=== PATIENT | female | born 1970 | race Caucasian/White ===

== ENCOUNTER 2018-09-21 10:08 | Emergency (ER) | payer MEDICAID ==
[~2018-09-21] VITALS: Ht 165.1 cm; Wt 81.2 kg
[2018-09-21 10:12] VITALS: Ht 165.1 cm; Wt 81.2 kg
[2018-09-21 11:29] VITALS: BP 113/71
== END 2018-09-21 11:29 | disposition home or self-care (01) ==
LOC: ED 10:08
DX: N39.0 Urinary tract infection, site not specified (principal); M79.10 Myalgia, unspecified site

== ENCOUNTER 2019-01-11 19:46 | Emergency (ER) | payer MEDICAID ==
[~2019-01-11] VITALS: Ht 165.1 cm; Wt 81.0 kg
[2019-01-11 19:58] VITALS: Ht 165.1 cm; Wt 81.0 kg
[2019-01-11 20:52] LABS: BASOPHIL % 0.4 % (0-2); PLATELET COUNT 328 x10^3mcL (130-400)
[2019-01-11 20:52] LABS: UA SPECIFIC GRAVITY 1.015 (1.005-1.035); microscopic required? YES; urine erythrocyte TRACE (NEGATIVE)
[2019-01-11 20:55] LABS: RED CELL DISTRIBUTION WIDTH 17.8 % (11.5-14.5)
[2019-01-11 20:58] LABS: CALCIUM 8.6 mg/dL (8.5-10.1); CARBON DIOXIDE 29.3 mmol/L (21-32); CHLORIDE SERUM 100 mmol/L (98-107); CREATININE SERUM 0.6 mg/dL (0.6-1.0); GFR1 > 60 mL/min; GLUCOSE SERUM 99 mg/dL (74-106); POTASSIUM SERUM 3.9 mmol/L (3.5-5.1); SODIUM SERUM 138 mmol/L (136-145)
[2019-01-11 21:12] LABS: ALBUMIN 3.4 g/dL (3.4-5.0); ALKALINE PHOSPHATASE 96 U/L (46-116); ALT/SGPT 37 U/L (14-59); AST/SGOT 15 U/L (15-37); BILIRUBIN TOTAL 0.5 mg/dL (0.20-1.00); FREE T4 1.09 ng/dL (0.76-1.46); TOTAL PROTEIN, SERUM 7.5 g/dL (6.4-8.2)
[2019-01-11 23:46] VITALS: BP 130/77
== END 2019-01-11 23:46 | disposition home or self-care (01) ==
LOC: ED 19:46
PROVIDERS: Emergency Medicine
DX: R53.1 Weakness (principal); R42 Dizziness and giddiness; R11.0 Nausea; R51 Headache; R39.15 Urgency of urination
CPT/HCPCS: 36415; 82962; 84439

== ENCOUNTER 2019-03-22 17:46 | Emergency (ER) | payer MEDICAID ==
[~2019-03-22] VITALS: Ht 165.1 cm; Wt 81.2 kg
[2019-03-22 18:04] VITALS: Ht 165.1 cm; Wt 81.2 kg
[2019-03-22 19:11] VITALS: BP 101/61
== END 2019-03-22 20:20 | disposition home or self-care (01) ==
LOC: ED 17:46
DX: G44.209 Tension-type headache, unspecified, not intractable (principal); Z86.2 Personal history of diseases of the blood and blood-forming organs and certain disorders involving the immune mechanism; Z90.49 Acquired absence of other specified parts of digestive tract
CPT/HCPCS: J0780; J1885

== ENCOUNTER 2019-06-28 10:15 | Emergency (ER) | payer MEDICAID ==
[~2019-06-28] VITALS: Ht 162.6 cm; Wt 84.4 kg
[2019-06-28 10:25] VITALS: BP 117/62
== END 2019-06-28 11:58 | disposition home or self-care (01) ==
LOC: ED 10:15
DX: L25.9 Unspecified contact dermatitis, unspecified cause (principal); R10.9 Unspecified abdominal pain; Z98.890 Other specified postprocedural states; Z90.49 Acquired absence of other specified parts of digestive tract; Z86.2 Personal history of diseases of the blood and blood-forming organs and certain disorders involving the immune mechanism

== ENCOUNTER 2019-10-14 10:44 | Emergency (ER) | payer MEDICAID ==
[~2019-10-14] VITALS: Ht 160 cm; Wt 86.6 kg
[2019-10-14 11:01] VITALS: BP 123/56; Ht 160 cm; Wt 86.6 kg
[2019-10-14 11:38] LABS: BASOPHIL % 0.6 % (0-2); PLATELET COUNT 251 x10^3mcL (130-400)
[2019-10-14 11:41] LABS: RED CELL DISTRIBUTION WIDTH 15.9 % (11.5-14.5)
[2019-10-14 12:04] LABS: CALCIUM 7.8 mg/dL (8.5-10.1); CARBON DIOXIDE 27.9 mmol/L (21-32); CHLORIDE SERUM 107 mmol/L (98-107); CREATININE SERUM 0.5 mg/dL (0.6-1.0); GFR1 > 60 mL/min; GLUCOSE SERUM 101 mg/dL (74-106); POTASSIUM SERUM 4.3 mmol/L (3.5-5.1); SODIUM SERUM 142 mmol/L (136-145)
[2019-10-14 12:09] LABS: ALKALINE PHOSPHATASE 93 U/L (46-116); ALT/SGPT 38 U/L (14-59); AST/SGOT 19 U/L (15-37); BILIRUBIN TOTAL 0.7 mg/dL (0.20-1.00); TOTAL PROTEIN, SERUM 6.8 g/dL (6.4-8.2)
[2019-10-14 12:13] LABS: ALBUMIN 3.1 g/dL (3.4-5.0)
== END 2019-10-14 13:00 | disposition home or self-care (01) ==
LOC: ED 10:44
PROVIDERS: Emergency Medicine
DX: M79.10 Myalgia, unspecified site (principal); L50.9 Urticaria, unspecified; D64.9 Anemia, unspecified; Z90.49 Acquired absence of other specified parts of digestive tract; Z98.890 Other specified postprocedural states
CPT/HCPCS: J1885

== ENCOUNTER 2020-07-28 10:16 | Emergency (ER) | payer MEDICAID ==
[~2020-07-28] VITALS: Ht 160 cm; Wt 85.3 kg
[2020-07-28 14:16] VITALS: BP 124/82
== END 2020-07-28 13:50 | disposition home or self-care (01) ==
LOC: ED 10:16
DX: S00.83XA Contusion of other part of head, initial encounter (principal); F41.9 Anxiety disorder, unspecified; Z90.49 Acquired absence of other specified parts of digestive tract; Z98.890 Other specified postprocedural states; Y04.8XXA Assault by other bodily force, initial encounter; Y93.89 Activity, other specified; Y92.89 Other specified places as the place of occurrence of the external cause; Y99.8 Other external cause status